=== PATIENT | female | born 1970 | race Two or more races ===

== ENCOUNTER 2019-06-30 21:24 | Emergency (ER) | payer OTHER ==
[~2019-06-30] VITALS: Ht 154.9 cm; Wt 66.7 kg
[2019-06-30] MEDS ORDERED: CYMBALTA20 MG (21:33)
[2019-06-30] MEDS ORDERED: LIPITOR40 M1 (21:33)
[2019-06-30] MEDS ORDERED: CLONAZEPAM1 MG (21:34)
[2019-06-30] MEDS ORDERED: RESTORIL7.5 MG (21:34)
[2019-06-30] MEDS ORDERED: DOLOGEN CAPLET1 EACH PO (23:15)
[2019-06-30] MEDS ORDERED: IPRAT-ALBUT 0.5-3 ML IH (23:15)
[2019-06-30] MEDS ORDERED: TUSNEL LIQUID178 ML PO (23:15)
[2019-06-30] MEDS ORDERED: VENTOLIN HFA18 GM IH (23:15)
[2019-06-30] MEDS ORDERED: ZITHROMAX500 MG PO (23:15)
== END 2019-06-30 23:56 | disposition home or self-care (01) ==
LOC: ER 21:24
DX: J06.9 Acute upper respiratory infection, unspecified (principal)

== ENCOUNTER 2024-06-27 05:00 | Day surgery (SDC) | payer OTHER ==
[2024-06-21 08:23] LABS: PH,URINE 5.5 (5.0-8.0); URINE APPEARANCE Clear; URINE BILIRRUBIN Negative (NEGATIVE); URINE BLOOD Negative; URINE COLOR Yellow; URINE GLUCOSE Negative (NEGATIVE); URINE KETONE Negative (NEGATIVE); URINE LEUKOCYTE Small; URINE NITRATE Negative; URINE PROTEIN Negative (NEGATIVE); URINE UROBILINOGEN 0.2 E.U./dl
[2024-06-21 08:25] LABS: URINE BACTERIA 28.1 uL (0.0-1933); URINE EPITHELIAL CELLS 16.4 uL (0.0-38.8); URINE RBC 5.7 uL (0.0-20.8); URINE WBC 21.6 uL (0.0-23.2)
[2024-06-21 08:28] LABS: HEMATOCRIT 40.3 % (36.0-45.00); HEMOGLOBIN 13.5 g/dL (12.0-15.00); MEAN CELL VOLUME 96.5 fL (80.00-100.00); MEAN CORPUSCULAR HEMOGLOBIN 32.2 pg (27.00-32.0); MEAN CORPUSCULAR HGB CONC 33.4 g/dl (32.0-36.0); PLATELET COUNT 170 K/uL (150-450); RED BLOOD COUNT 4.18 M/uL (4.00-6.00); RED CELL DISTRIBUTION WIDTH 12.9 % (11.5-14.5)
[2024-06-21 08:36] LABS: URINE CAST 0.14 uL (0.0-1.40)
[2024-06-21 09:05] LABS: INR 1.1; PARTIAL THROMBOPLASTIN TIME 28.5 SECONDS (22.0-34.0); PROTHROMBIN TIME 11.9 SECONDS (9.0-11.5)
[2024-06-21 09:16] VITALS: BP 94/61
[2024-06-21 09:36] LABS: ALBUMIN 3.9 gm/dL (3.4-5.0); BILIRUBIN TOTAL 0.44 mg/dL (0.3-1.2); CALCIUM 9.2 mg/dL (8.5-10.1); CREATININE SERUM 0.55 mg/dL (0.55-1.02); GFR 116.53; POTASSIUM 4.25 mEq/L (3.5-5.1); TOTAL PROTEIN 6.9 gm/dL (6.4-8.2)
[~2024-06-27] VITALS: Ht 152.4 cm; Wt 49.9 kg
[~2024-06-27 05:00] MED LIST: CLONAZEPAM1 MG; CYMBALTA20 MG; DOLOGEN CAPLET1 EACH PO; IPRAT-ALBUT 0.5-3 ML IH; LIPITOR40 M1; RESTORIL7.5 MG PO; SEROQUEL200 MG PO; TUSNEL LIQUID178 ML PO; VENTOLIN HFA18 GM IH; VISTARIL50 MG/ML PO; ZITHROMAX500 MG PO
[2024-06-27] MEDS ORDERED: BUPIVACAINE HCL/MPF 0.5% 30ML VIAL ONE (06:49)
[2024-06-27] MEDS ORDERED: LIDOCAINE HCL 1%/EPINEPHRINE 20ML VIAL IJ ONE (06:50)
[2024-06-27] MEDS ORDERED: CEFAZOLIN SODIUM 1,000 MG VIAL ONE (06:50)
== END 2024-06-27 10:35 | disposition home or self-care (01) ==
LOC: CIR.AMB 05:00
PROVIDERS: ATTEND Orthopaedic Surgery Hand Surgery
DX: M65.311 Trigger thumb, right thumb (principal); Z88.6 Allergy status to analgesic agent; Z91.02 Food additives allergy status; J44.9 Chronic obstructive pulmonary disease, unspecified; F41.9 Anxiety disorder, unspecified